=== PATIENT | female | born 1935 | race American Indian/Alaskan Native ===

== ENCOUNTER 2024-08-21 13:36 | Emergency (ER) | payer MEDICARE, BC, SELFPAY ==
--- NOTE | 2024-08-21 14:03 | ED.GENADULT ---
HPI - General Adult General Chief complaint: Skin/Abscess/Foreign Body Stated complaint: shingles , abd pain Time Seen by Provider: 08/21/24 13:45 History of Present Illness HPI narrative: 88-year-old woman with a history of atrial fibrillation, on Eliquis, valsartan, diltiazem and carvedilol presents with resolving shingles and significant post herpetic neuralgia pain. She states that she presented to the ER about 3 weeks ago but it was quite busy and was not seen with the initial outbreak of the zoster, left-sided T7 distribution. She has been using some topical herbal remedies for the rash and has been very careful to avoid infection. The vesicles are almost entirely healed but now she is having burning pain in that distribution enough that she is having difficulty sleeping. She has not yet tried any medications, states she has a very high pain medication threshold but this was too much for even her. No fever, cough, chills. No shortness a breath. Related Data Previous Rx's Medication Instructions Recorded gabapentin 300 mg capsule 300 mg PO BEDTIME #30 caps 08/21/24 oxycodone-acetaminophen 5 mg-325 1 tab PO Q6H PRN pain #20 tabs 08/21/24 mg tablet Allergies Allergy/AdvReac Type Severity Reaction Status Date / Time No Known Drug Allergies Allergy Verified 08/21/24 14:08 Review of Systems Review of Systems Narrative: Pertinent positive and negative findings as per HPI Patient History Medical History (Updated 08/21/24 @ 14:13 by Antonia Alvarez MD) Post herpetic neuralgia Chronic a-fib Exam Initial Vital Signs Initial Vital Signs: General: Alert appropriate in no acute distress Respiratory: Able to speak in full sentences, no obvious respiratory distress Skin: healing but still erythematous in a T7 distribution left side. No vesicle stool appreciated, minor amount of scabbing, no secondary signs of infection or discharge Neurologic: Grossly intact no obvious asymmetries or abnormalities Psych: appropriate insight and affect, cooperative Medical Decision Making [facility] Narrative Medical decision making narrative: 88-year-old woman with zoster that she recognized 3 weeks ago but chose not to stay and see emergency care provider so did not receive any antiviral medication. Now having classic post herpetic neuralgia symptoms. We discussed the neuropathic nature of the pain and difficulty in treating it. She does not show any signs of secondary infection, does not need blood work or additional imaging at this time. We talked about use of gabapentin at night to help reduce pain. If this is ineffective did suggest that she discontinue. We discussed the importance of keeping the rash is still well lubricated to allow the remainder of the skin to heal and to watch for signs of secondary infection. Asked her to add Tylenol and if this is ineffective then to use oxycodone. Discussed the use of stool softeners if she does need to use the narcotic. At this point she does not have a primary care physician and I strongly suggested she see if she can get in with an. Unfortunately I believe this is going to end up being a chronic management and chronic pain issue for this delightful lady. She is safe for discharge Discharge Plan Departure Patient Disposition: Home Clinical Impression: Post herpetic neuralgia Activity Restrictions/Additional Instructions: thank you for coming in today this is classic shingles/ zoster in the T7 distribution. You have done an excellent job in keeping care of the rash to allow the blisters to heal and to prevent bacterial infection. Please continue the topical emollients that you are currently using. Unfortunately, which you are experiencing now is post herpetic neuralgia. This is the virus affecting the nerve root itself causing the nerve to be inflamed and it is nerve pain that is bothering you. Nerve pain is very difficult to treat and is exceptionally painful I am going to give you a prescription for gabapentin / Neurontin. This is actually a seizure medication that we frequently use to help with nerve type pain. If it is helpful you can continue to use it, if you is not making a difference do not take a medication that is not changing your symptoms for overall pain control, I would recommend starting with Tylenol. With your Eliquis, do not take Naprosyn, ibuprofen, Aleve, Advil or aspirin.This may help somewhat but I suspect that for the stabbing severe pain that is keeping you awake at night you are going to need some narcotic I have given you a prescription for Percocet which is Tylenol plus oxycodone. You can try half to 1 pill every 6 hours as needed for severe pain. Narcotics will cause constipation, please take it with a stool softener. prescriptions were sent to [facility] in [place] Post herpetic neuralgia can end up being very difficult to treat and more of a lifelong management problem. I would strongly recommend that you call around to find a primary care physician that may have an open spot. Many of the primary care physician's in the greater area have multi month wait times before seeing a new patient. It seems like the area is becoming infected, you are having fevers or body aches or obviously getting worse do return to the ER Prescriptions: New gabapentin 300 mg capsule 300 mg PO BEDTIME Qty: 30 1RF Rx Instructions: post herpetic neuralgia oxycodone-acetaminophen 5-325 mg tablet 1 tab PO Q6H PRN (Reason: pain) Qty: 20 0RF Stand Alone Forms: Patient Portal/API/Survey
[2024-08-21 14:06] VITALS: BP 177/94; PULSE 88; RESP 16; TEMP 36.6; O2SAT 98; BMI 23.6
== END 2024-08-21 14:22 | disposition home or self-care (01) ==
PROVIDERS: Emergency Provider Emergency Medicine
DX: B02.29 Other postherpetic nervous system involvement (principal)
CPT/HCPCS: 99281

== ENCOUNTER → 2025-01-01 10:38 | Outpatient (CLI) | payer MEDICARE, BC, SELFPAY ==
[2025-01-01 12:11] LABS: Add Manual Diff / Slide Review NO; Hematocrit 42.1 % (36-46); Hemoglobin 14.1 g/dL (12.0-16.0); Lymphocytes Absolute Auto 1100 /uL (1100-4500); Mean Corpuscular HGB Conc 33.6 % (30-36); Mean Corpuscular Hemoglobin 35.1 PG (26-34); Mean Corpuscular Volume 104.4 fL (80-100); Platelet Count 300 X10^3/uL (150-400)
[2025-01-01 12:56] LABS: Alanine Aminotransferase 11 IU/L (<35); Albumin 4.0 g/dL (3.5-5.0); Albumin Globulin Ratio 1.1 (1.0-2.8); Alkaline Phosphatase 66 U/L (38-126); Blood Urea Nitrogen 22 mg/dL (7-17); Calcium 9.6 mg/dL (8.4-10.2); Carbon Dioxide 31 mmol/L (22-32); Chloride 96 mmol/L (98-107); Estimated Glomerular Filt Rate > 60 mL/min (>60); Globulin 3.6 g/dL (1.7-4.1); Glucose 62 mg/dL (70-99); HEMOLYSIS < 15 (0-50); Potassium 5.0 mmol/L (3.4-5.1); Sodium 135 mmol/L (137-145); Total Protein 7.6 g/dL (6.3-8.2)
[2025-01-01 13:20] LABS: Thyroid Stimulating Hormone 1.79 uIU/mL (0.47-4.68)
== END ==
PROVIDERS: Referring Provider Internal Medicine Cardiovascular Disease; Visit Provider Internal Medicine Cardiovascular Disease
DX: I42.8 Other cardiomyopathies (principal); I48.19 Other persistent atrial fibrillation; I48.91 Unspecified atrial fibrillation
CPT/HCPCS: 36415; 80053; 84443; 85025